=== PATIENT | male | born 2000 | race Asian ===

== ENCOUNTER 2023-05-23 11:29 | Emergency (ER) | payer SELFPAY ==
[~2023-05-23] VITALS: Ht 167.6 cm; Wt 75.0 kg
[2023-05-23 11:34] VITALS: BP 116/74; PULSE 76; RESP 16; TEMP 98.2; O2SAT 99
== END 2023-05-23 11:53 | disposition left against medical advice (07) ==
LOC: ER 11:42
DX: F10.129 Alcohol abuse with intoxication, unspecified (principal); Z53.21 Procedure and treatment not carried out due to patient leaving prior to being seen by health care provider; Y90.9 Presence of alcohol in blood, level not specified
CPT/HCPCS: 99281; Z7610 ×3